=== PATIENT | female | born 1970 | race Caucasian/White ===

== ENCOUNTER 2020-06-06 15:26 | Outpatient (CLI) | payer OTHER, SELFPAY ==
--- NOTE | ~2020-06-06 | MM_ITS ---
EXAMINATION: MM screening jl BI w nathalie HISTORY: Screening TECHNIQUE: Craniocaudal and mediolateral oblique 3-D tomosynthesis images were obtained and synthetic 2-D images were generated. CAD analysis was submitted and interpreted. COMPARISON: Comparison to multiple prior studies sequentially, with oldest reviewed study dated 01/15. BREAST PARENCHYMAL COMPOSITION: There are scattered areas of fibroglandular density. FINDINGS: There is no evidence of suspicious mass, calcification, or architectural distortion to sugg est malignancy in either breast. There has been no suspicious interval change. IMPRESSION: 1. No mammographic evidence of malignancy. 2. Recommend routine screening mammography in one year. BI-RADS Category 1: Negative Reviewed, dictated and finalized at location A.
== END 2020-06-06 15:27 | disposition home or self-care (01) ==
LOC: ANHIMG 15:28
PROVIDERS: PCP Family Medicine; Visit Provider Nurse Practitioner
DX: Z12.31 Encounter for screening mammogram for malignant neoplasm of breast (principal)
CPT/HCPCS: 77063; 77067

== ENCOUNTER → 2020-08-02 15:57 | Outpatient (CLI) | payer OTHER, SELFPAY ==
--- NOTE | ~2020-08-02 | US_ITS ---
EXAMINATION: US transvaginal EXAM DATE: 08/02/2020 16:27 INDICATION: Abnormal uterine bleeding. TECHNIQUE: Pelvic transvaginal sonogram was performed. There are multiple grayscale and Doppler imag es available for interpretation. There is no prior study for comparison. FINDINGS: Uterus measures 8.0 x 3.8 x 4.5 cm, with a complex cystic region measuring 1.1 x 1.6 x 1.0 cm just posterior to the endometrium, region of the myometrial/endometrial junction. This is of unce rtain clinical significance. Endometrial stripe measures 11 mm, within normal limits. There is no fr ee pelvic fluid. Right adnexa: The ovary measures 2.9 x 2.1 x 1.8 cm and is morphologically normal. Ovarian vascular f low confirmed. Left adnexa: The ovary measures 3.6 x 2.5 x 3.6 cm and is morphologically normal. Ovarian vascular fl ow confirmed. IMPRESSION: Small complex cystic region in myometrial/endometrial junction posteriorly, uncertain cli nical significance. Consider 6 week follow-up pelvic sonogram. Normal ovaries. Reviewed, dictated and finalized at location B. IMPRESSION: Small complex cystic region in myometrial/endometrial junction post eriorly, uncertain clinical significance. Consider 6 week follow-up pelvic so nogram. Normal ovaries.
== END ==
PROVIDERS: PCP Family Medicine; Visit Provider Nurse Practitioner
DX: N93.8 Other specified abnormal uterine and vaginal bleeding (principal)
CPT/HCPCS: 76830

== ENCOUNTER → 2020-09-19 09:15 | Outpatient (CLI) | payer OTHER, SELFPAY ==
--- NOTE | ~2020-09-19 | MR_ITS ---
EXAMINATION: MR pituitary wo/w con DATE: 09/19/2020 10:14 INDICATION: Hyperprolactinemia. TECHNIQUE: Magnetic resonance imaging (MRI) of the brain and brainstem was performed without and with 20 mL MultiHance intravenous contrast. Whole-brain sequences included sagittal T1-weighted FSE, axia l diffusion-weighted FS EPI, axial T2*-weighted GRE, axial T2-weighted FLAIR Propeller, and axial T2- weighted Propeller. Small tozgx-xh-ftcl sequences included sagittal and coronal T1-weighted FSE cente red at the pituitary. Postcontrast sequences included small yguyy-ra-wvlm coronal T1-weighted FSE in a time course and sagittal T1-weighted FSE and whole-brain axial T1-weighted FSE. Apparent diffusion coefficient (ADC) maps were created. COMPARISON: Head CT 06/12/2019 FINDINGS: There are small areas of nonspecific increased T2-weighted signal intensity in the cerebral white matter, which is within normal limits for the patient's age. The pituitary is normal in size w ith height of 4 mm and concave superior margin. The ventricles are normal in size. The orbits are nor mal. The mastoid air cells are normal. The paranasal sinuses are clear. IMPRESSION: 1. Normal pituitary. Normal brain. Reviewed, dictated and finalized at location A. TAL LAPPER
[2020-09-19 09:46] LABS: Estimated Glomerular Filt Rate > 60
== END ==
PROVIDERS: PCP Family Medicine; Visit Provider Nurse Practitioner
DX: E22.1 Hyperprolactinemia (principal)
CPT/HCPCS: 70553; A9577

== ENCOUNTER → 2020-12-02 03:03 | Outpatient (CLI) | payer OTHER, SELFPAY ==
[2020-12-02 18:11] LABS: SARS-CoV-2 RNA PCR Negative
== END ==
PROVIDERS: PCP Family Medicine; Visit Provider Obstetrics & Gynecology Gynecology
DX: Z01.812 Encounter for preprocedural laboratory examination (principal); Z20.822 Contact with and (suspected) exposure to COVID-19
CPT/HCPCS: C9803; U0003; U0005

== ENCOUNTER 2020-12-05 02:02 | Day surgery (SDC) | payer OTHER, SELFPAY ==
[2020-11-29 15:14] VITALS: BMI 39.1
--- NOTE | 2020-12-05 07:33 | P.HP_ITS ---
History of Present Illness History of Present Illness Consent: Risks, benefits, and alternatives have been discussed and questions answered. Patient agrees to proceed with procedure. Chief complaint: Menorrhagia Narrative: Frances Real is a 50 year old female with prolonged bleeding episodes. Hysteroscopy with EMB benign. Options reviewed and patient chose to proceed with Meggan ablation. Discussed with patient success and outcomes post ablation. Reviewed risks of infection, bleeding, and perforation. Reviewed device failure. Due to stenosis of cervix, performing in OR and she has taken cytotec preoperatively. Patient agrees to proceed. [facility] Surgical History Surgical History (Updated 12/05/20 @ 07:37 by Constance Huston MD) S/P S/P laparoscopic cholecystectomy S/P tonsillectomy S/P tubal ligation Family History Family History (Updated 05/25/16 @ 23:19 by DOCTOR UNKNOWN) Father Hypertension Family history of malignant neoplasm of urinary bladder Grandparent Hypertension Cerebrovascular accident Family history of kidney disease Malignant neoplasm of prostate Diabetes mellitus Mother Hypertension Family history of osteoarthritis Family history of malignant neoplasm of breast in first degree relative Social History Social History Smoking status: Never smoker Second hand tobacco smoke exposure: No Alcohol intake: never Substance use: never Substance use type: does not use Living arrangements: with family Spiritual care concerns: No Meds Home Medications and Allergies Home Medications Medication Instructions Recorded Confirmed Type ergocalciferol (vitamin D2) 50,000 unit PO WEEKLY 11/29/20 11/29/20 History Allergies Allergy/AdvReac Type Severity Reaction Status Date / Time No Known Allergies Allergy Unknown Verified 01/22/10 19:37 Exam Const: General: cooperative, healthy appearing and comfortable : External Female Exam: normal external appearance Speculum Exam - Vagina: normal appearance of the vagina Speculum Exam - Cervix: normal debbie earance of the cervix and Other cervical findings present (very stenotic) Bimanual exam- vagina & uterus: normal bimanual exam Bimanual Exam- Adnexa, other: normal adnexae Assessment and Plan Assessment and plan (1) Menorrhagia: Code(s): N92.0 - Excessive and frequent menstruation with regular cycle Status: Acute Assessment and Plan: Plan to proceed with Meggan endometrial ablation
--- NOTE | 2020-12-05 07:33 | WPDHPUPDATE1 ---
History and Physical Update Update Date/Time: 12/05/20 07:33 History and Physical has been reviewed, including an updated exam of the patient. There are NO changes in the patient's condition. Risks, benefits, and alternatives have been discussed and questions answered. Patient agrees to proceed with procedure.
[2020-12-05 07:37] VITALS: BP 133/93; PULSE 84; RESP 16; TEMP 36; O2SAT 100
[2020-12-05] MEDS: LACTATED RINGERS 1,000 ML 30 ML IV CONT (08:20)
--- NOTE | 2020-12-05 08:22 | WPDANESEPPF ---
Anes - Initial Pre Proc Eval Procedure: Operation Date: 12/05/20 09:30 Proposed Procedures p Hysteroscopy With Meggan Ablation - Constance Huston MD Date/Time: 12/05/20 08:22 Surgeon: Constance Huston MD Pre Op Diagnosis: Menorrhagia Patient Data Age: 50 Gender: F Height: 5 ft 4 in Weight: 103.42 kg Allergies Allergy/AdvReac Type Severity Reaction Status Date / Time No Known Allergies Allergy Unknown Verified 01/22/10 19:37 Home Medications Medication Instructions Recorded Confirmed Type ergocalciferol (vitamin D2) 50,000 unit PO WEEKLY 11/29/20 11/29/20 History Laboratory Tests 12/05/20 07:58 Beta HCG, Quant Pending Patient hx anesthesia problems: none Family hx anesthesia problems: none PMFSH Surgical History Surgical History S/P S/P laparoscopic cholecystectomy S/P tonsillectomy S/P tubal ligation Family History Family History Father Hypertension Family history of malignant neoplasm of urinary bladder Grandparent Hypertension Cerebrovascular accident Family history of kidney disease Malignant neoplasm of prostate Diabetes mellitus Mother Hypertension Family history of osteoarthritis Family history of malignant neoplasm of breast in first degree relative Social History Social History Smoking status: Never smoker Second hand tobacco smoke exposure: No Alcohol intake: never Substance use: never Substance use type: does not use Living arrangements: with family Spiritual care concerns: No Anes - Eval Final PreProcedure Day of Procedure 12/05/20 08:22 Patient weight: obese Heart: regular rate and rhythm Lungs: clear to auscultation Airway: Mallampati scale class II Neurological: alert and oriented Last oral intake: >/= 8 hours ASA classification: III Emergent: no Anesthetic plan: proceed Anesthesia type and monitoring: general GIVS and standard monitoring Informed Consent: The patient's anesthetic plan and its attendant risks and benefits were discussed with the patient/family/POA. Questions were solicited and answers provided to the satisfaction of the patient/family/POA.
[2020-12-05] MEDS: ACETAMINOPHEN 500 MG TABLET 1000 MG PO (08:47)
[2020-12-05 08:49] LABS: Beta HCG Quantitative < 2.39 mIU/ML
[2020-12-05] MEDS: LIDOCAINE HCL 1% LOCAL INJ 20 ML VIAL 10 ML INFILTRATE (09:08)
--- NOTE | 2020-12-05 09:33 | PM.PROC ---
Procedure Note - Detailed Date of procedure: 12/05/20 Pre-op diagnosis: Menorrhagia cervical stenosis Post-op diagnosis: same Procedure performed: Meggan endometrial ablation Description of procedure: The patient was taken to the operating room and placed under anesthesia in the dorsal lithotomy position. The she was prepped and draped in the sterile fashion. [employer] speculum was placed in the vagina and the cervix grasped on the anterior lip of the tenaculum. The cervix was injected with 1% lidocaine in each quadrant. The sound was attempted to be placed and was not successful. The small dilator was able to enter the cavity. The cervix was dilated with the 3/4 dilator without difficulty. The 5 and 6 dilator were very tight and the tenaculum kept pulling from the anterior cervix. The tenaculum was placed on the posterior lip of the cervix and again the tenaculum site pulled through. A 2nd tenaculum was requested and 1 tenaculum was placed at 3 and 1 at 9. The cervix was then with quite amount of difficulty able to be dilated to the 8 Hegar. The hysteroscope was then placed with no abnormalities noted. The remainder of the device is opened and placed with the setting initially of 4.5. The device was felt to be at the fundus. The balloon was noted to be right at the external cervix so it was removed and set at 4. When opening the device the indicator remained in the red despite maneuvering the device around. The balloon was not visible. Therefore was inflated. The cavity indicator showed a good seal therefore the ablation was performed. Cavity assessment passed on the 1st attempt and the treatment cycle lasted the full 2 minutes. The device is removed and the hysteroscope was placed with no abnormalities noted and some ablation effect noted. The instruments are removed from the cervix and Monsel's is required for hemostasis of the previously placed tenaculum sites anteriorly and posteriorly. Good hemostasis was then noted and the speculum is removed. Sponge, instrument, and needle counts are correct per the OR staff. Anesthesia: MAC and local Surgeon: Constance Huston MD Estimated blood loss (mL): 5 Drains: No Packing: No Pathology: none sent Complications: No immediate complications Condition: stable Disposition: PACU Findings: cervix with severe stenosis at internal os; endometrium appears grossly normal; Uterus 8
[2020-12-05 09:37] VITALS: BP 142/93; PULSE 81; RESP 16; O2SAT 99
[2020-12-05 10:00] VITALS: BP 151/96; PULSE 82; RESP 16; O2SAT 100
[2020-12-05] MEDS: oxyCODONE HCL (*CRX) 5 MG TAB IR PO (10:05)
[2020-12-05 10:20] VITALS: BP 143/92; PULSE 80; RESP 16; O2SAT 100
== END 2020-12-05 10:30 | disposition home or self-care (01) ==
PROVIDERS: Anesthesiology; PCP Family Medicine; Visit Provider Obstetrics & Gynecology Gynecology
PROC: 0U5B8ZZ Destruction of Endometrium, Via Natural or Artificial Opening Endoscopic (ICD-10-PCS; CPT 58563; principal; 2020-12-05 09:30)
DX: N92.0 Excessive and frequent menstruation with regular cycle (principal); N88.2 Stricture and stenosis of cervix uteri; E66.9 Obesity, unspecified; Z68.38 Body mass index [BMI] 38.0-38.9, adult
CPT/HCPCS: 58563; 36415; 84702; A9270; C9803; J2250; J2704; J3010; J7030; J7120; U0003; U0005

== ENCOUNTER 2021-02-07 15:37 | Outpatient (CLI) | payer OTHER, SELFPAY | END 2021-02-07 15:38 | disposition home or self-care (01) | LOC: ANHCOVIDVC 15:37 | PROVIDERS: PCP Family Medicine | DX: Z23 Encounter for immunization (principal) | CPT/HCPCS: 0001A; 91300 ==

== ENCOUNTER 2021-02-28 12:58 | Outpatient (CLI) | payer OTHER, SELFPAY | END 2021-02-28 12:59 | disposition home or self-care (01) | LOC: ANHCOVIDVC 12:59 | PROVIDERS: PCP Family Medicine | DX: Z23 Encounter for immunization (principal) | CPT/HCPCS: 0002A; 91300 ==

== ENCOUNTER 2021-06-08 07:24 | Outpatient (CLI) | payer OTHER, SELFPAY ==
--- NOTE | ~2021-06-08 | MM_ITS ---
EXAMINATION: MM screening jl BI w nathalie HISTORY: Screening TECHNIQUE: Craniocaudal and mediolateral oblique 3-D tomosynthesis images were obtained and synthetic 2-D images were generated. CAD analysis was submitted and interpreted. COMPARISON: Comparison to multiple prior studies sequentially, with oldest reviewed study dated 03/27. BREAST PARENCHYMAL COMPOSITION: There are scattered areas of fibroglandular density. FINDINGS: There is no evidence of suspicious mass, calcification, or architectural distortion to sugg est malignancy in either breast. There has been no suspicious interval change. IMPRESSION: 1. No mammographic evidence of malignancy. 2. Recommend routine screening mammography in one year. BI-RADS Category 1: Negative Reviewed, dictated and finalized at location A.
== END 2021-06-08 07:25 | disposition home or self-care (01) ==
PROVIDERS: PCP Family Medicine; Visit Provider Nurse Practitioner
DX: Z12.31 Encounter for screening mammogram for malignant neoplasm of breast (principal)
CPT/HCPCS: 77063; 77067

== ENCOUNTER 2021-06-29 01:41 | Day surgery (SDC) | payer OTHER, SELFPAY ==
[2021-06-16 14:42] VITALS: BMI 39.3
[2021-06-29 06:20] VITALS: BP 124/95; PULSE 78; RESP 16; TEMP 36.8; O2SAT 99; BMI 40.1
[2021-06-29] MEDS: LACTATED RINGERS 1,000 ML 150 ML IV CONT (06:24)
--- NOTE | 2021-06-29 07:20 | WPDANESEPPF ---
Anes - Initial Pre Proc Eval Procedure: Operation Date: 06/29/21 07:30 Proposed Procedures p Screening Colonoscopy - Addy Redmond MD Date/Time: 06/29/21 07:20 Surgeon: Addy Redmond MD Pre Op Diagnosis: neoplasm screening Patient Data Age: 50 Gender: F Height: 1.63 m Weight: 106 kg Last Vital Signs Temp 98.2 F 06/29/21 06:20 Pulse 78 06/29/21 06:20 Resp 16 06/29/21 06:20 BP 124/95 H 06/29/21 06:20 Pulse Ox 99 06/29/21 06:20 Allergies Allergy/AdvReac Type Severity Reaction Status Date / Time No Known Allergies Allergy Unknown Verified 06/29/21 06:18 Home Medications Medication Instructions Recorded Confirmed Type ergocalciferol (vitamin D2) 50,000 unit PO WEEKLY 11/29/20 06/16/21 History Patient hx anesthesia problems: none Family hx anesthesia problems: none PMFSH Past Medical History Medical History (Updated 06/29/21 @ 07:20 by Arnulfo Chen MD) JOSE (obstructive sleep apnea) Surgical History Surgical History S/P S/P laparoscopic cholecystectomy S/P tonsillectomy S/P tubal ligation Family History Family History Father Hypertension Family history of malignant neoplasm of urinary bladder Grandparent Hypertension Cerebrovascular accident Family history of kidney disease Malignant neoplasm of prostate Diabetes mellitus Mother Hypertension Family history of osteoarthritis Family history of malignant neoplasm of breast in first degree relative Social History Social History Smoking status: Former smoker Second hand tobacco smoke exposure: No Alcohol intake: never Substance use: never Substance use type: does not use Living arrangements: with family Spiritual care concerns: No Anes - Eval Final PreProcedure Day of Procedure 06/29/21 07:20 Patient weight: morbidly obese Heart: regular rate and rhythm Lungs: clear to auscultation Airway: Mallampati scale class II Neurological: alert and oriented Last oral intake: >/= 8 hours ASA classification: III Emergent: no Anesthetic plan: proceed Anesthesia type and monitoring: general GIVS and standard monitoring Informed Consent: The patient's anesthetic plan and its attendant risks and benefits were discussed with the patient/family/POA. Questions were solicited and answers provided to the satisfaction of the patient/family/POA.
--- NOTE | 2021-06-29 07:59 | WPDGICN ---
Assessment and Plan Assessment and plan (1) Encounter for screening colonoscopy: Code(s): Z12.11 - Encounter for screening for malignant neoplasm of colon Status: Acute Assessment and Plan: Patient presents for screening colonoscopy. She appears to be at average risk for colon polyps. Further recommendations will be given after endoscopy. GI Consult Note Consult date/time: 06/29/21 07:59 HPI: Frances Real is a 50 year old female Presents for screening colonoscopy. Patient has current weight appetite bowel movements normal. She denies abdominal pain. She has had no bleeding. Family history is noncontributory. Review of Systems Review of Systems: All systems reviewed & are unremarkable except as noted in HPI and below PMFSH Past Medical History Medical History (Updated 06/29/21 @ 08:00 by Addy Redmond MD) JOSE (obstructive sleep apnea) Surgical History Surgical History S/P S/P laparoscopic cholecystectomy S/P tonsillectomy S/P tubal ligation Family History Family History Father Hypertension Family history of malignant neoplasm of urinary bladder Grandparent Hypertension Cerebrovascular accident Family history of kidney disease Malignant neoplasm of prostate Diabetes mellitus Mother Hypertension Family history of osteoarthritis Family history of malignant neoplasm of breast in first degree relative Social History Social History Smoking status: Former smoker Second hand tobacco smoke exposure: No Alcohol intake: never Substance use: never Substance use type: does not use Living arrangements: with family Spiritual care concerns: No Meds Home Medications and Allergies Home Medications Medication Instructions Recorded Confirmed Type ergocalciferol (vitamin D2) 50,000 unit PO WEEKLY 11/29/20 06/16/21 History Allergies Allergy/AdvReac Type Severity Reaction Status Date / Time No Known Allergies Allergy Unknown Verified 06/29/21 06:18 Vital Signs Vital Signs - 24 hr 06/29/21 06:20 Temperature 98.2 F Pulse Rate 78 Respiratory Rate 16 Blood Pressure 124/95 H Pulse Oximetry 99 Exam Narrative: Physical exam reveals patient be alert. Vital signs are stable. HEENT exam is unremarkable. Patient is anicteric. Lungs are clear to auscultation and percussion. Heart is without murmur or extra sounds. Abdominal exam bowel sounds are present soft nontender with no organomegaly. Digital external rectal exam is normal.
[2021-06-29 08:00] VITALS: BP 125/97; PULSE 77; RESP 20; O2SAT 100
[2021-06-29 08:10] VITALS: BP 121/85; PULSE 67; RESP 16; O2SAT 100
[2021-06-29 08:20] VITALS: BP 127/83; PULSE 68; RESP 19; O2SAT 100
== END 2021-06-29 08:26 | disposition home or self-care (01) ==
PROVIDERS: PCP Family Medicine; Visit Provider Internal Medicine Gastroenterology
PROC: 0DJD8ZZ Inspection of Lower Intestinal Tract, Via Natural or Artificial Opening Endoscopic (ICD-10-PCS; CPT 45378; principal; 2021-06-29 07:30)
DX: Z12.11 Encounter for screening for malignant neoplasm of colon (principal); K64.8 Other hemorrhoids; G47.33 Obstructive sleep apnea (adult) (pediatric); Z90.49 Acquired absence of other specified parts of digestive tract; Z87.891 Personal history of nicotine dependence
CPT/HCPCS: G0121; J2704; J7120

== ENCOUNTER → 2021-11-07 00:58 | Outpatient (CLI) | payer OTHER, SELFPAY ==
[2021-11-07 21:02] LABS: SARS-CoV-2 RNA PCR Positive
== END ==
PROVIDERS: PCP Family Medicine; Visit Provider Nurse Practitioner Family
DX: U07.1 COVID-19 (principal)
CPT/HCPCS: C9803; U0003; U0005

== ENCOUNTER 2022-08-13 07:33 | Outpatient (CLI) | payer OTHER, SELFPAY ==
--- NOTE | ~2022-08-13 | MM_ITS ---
EXAMINATION: MM screening jl BI w nathalie HISTORY: Screening TECHNIQUE: Craniocaudal and mediolateral oblique 3-D tomosynthesis images were obtained and synthetic 2-D images were generated. CAD analysis was submitted and interpreted. COMPARISON: Comparison to multiple prior studies sequentially, with oldest reviewed study dated 03/27. BREAST PARENCHYMAL COMPOSITION: The breasts are heterogeneously dense, which may obscure small masses . FINDINGS: There is no evidence of suspicious mass, calcification, or architectural distortion to sugg est malignancy in either breast. There has been no suspicious interval change. IMPRESSION: 1. No mammographic evidence of malignancy. 2. Recommend routine screening mammography in one year. BI-RADS Category 1: Negative Reviewed, dictated and finalized at location A.
== END 2022-08-13 07:34 | disposition home or self-care (01) ==
LOC: ANHIMG 07:35
PROVIDERS: PCP Family Medicine; Visit Provider Nurse Practitioner
DX: Z12.31 Encounter for screening mammogram for malignant neoplasm of breast (principal)
CPT/HCPCS: 77063; 77067

== ENCOUNTER 2023-11-14 07:35 | Outpatient (CLI) | payer OTHER, SELFPAY ==
--- NOTE | ~2023-11-14 | MM_ITS ---
EXAMINATION: MM screening jl BI w nathalie HISTORY: Screening TECHNIQUE: Craniocaudal and mediolateral oblique 3-D tomosynthesis images were obtained and synthetic 2-D images were generated. CAD analysis was submitted and interpreted. COMPARISON: Comparison to multiple prior studies sequentially, with oldest reviewed study dated 02/2017. BREAST PARENCHYMAL COMPOSITION: The breasts are heterogeneously dense, which may obscure small masses . FINDINGS: There is no evidence of suspicious mass, calcification, or architectural distortion to sugg est malignancy in either breast. There has been no suspicious interval change. IMPRESSION: 1. No mammographic evidence of malignancy. 2. Recommend routine screening mammography in one year. BI-RADS Category 1: Negative Reviewed, dictated and finalized at location A. [employer]
== END 2023-11-14 07:36 | disposition home or self-care (01) ==
PROVIDERS: PCP Family Medicine; Visit Provider Nurse Practitioner
DX: Z12.31 Encounter for screening mammogram for malignant neoplasm of breast (principal)
CPT/HCPCS: 77063; 77067

== ENCOUNTER 2024-10-16 17:47 | Emergency (ER) | payer OTHER, SELFPAY ==
[2024-10-16 17:49] VITALS: BP 137/112; PULSE 101; RESP 18; TEMP 36.1; O2SAT 99
--- NOTE | 2024-10-16 19:45 | ED.GENADULT ---
HPI - General Adult General Chief complaint: Wound/Laceration Stated complaint: finger Time Seen by Provider: 10/16/24 18:55 History of Present Illness HPI narrative: 54-year-old female presenting with a finger laceration. She was using a sharp pizza cutter and cut a slice of her index finger. Did not hit bone. It is a relatively shallow cut. Her does not know when her last tetanus was. No other injuries. Related Data Home Medications ?Medication ?Instructions ?Recorded ?Confirmed ?Last Taken ?Type ergocalciferol (vitamin D2) 1,250 50,000 unit PO WEEKLY 11/29/20 06/16/21 11/27/20 History mcg (50,000 unit) capsule Allergies Allergy/AdvReac Type Severity Reaction Status Date / Time No Known Allergies Allergy Unknown Verified 10/16/24 17:48 [facility] Past Medical History Medical History (Updated 10/16/24 @ 19:50 by Lev Bullock MD) JOSE (obstructive sleep apnea) Surgical History Surgical History S/P tonsillectomy S/P tubal ligation S/P laparoscopic cholecystectomy S/P Family History Family History (Updated 01/15/22 @ 08:11 by Raysa Mohr Kevyn) Father Hypertension Family history of malignant neoplasm of urinary bladder Grandparent Hypertension Cerebrovascular accident Family history of kidney disease Malignant neoplasm of prostate Diabetes mellitus Mother Hypertension Family history of osteoarthritis Family history of malignant neoplasm of breast in first degree relative Sibling No problems noted. Social History Social History Smoking status: Former smoker Second hand tobacco smoke exposure: No Alcohol intake: never Substance use: never Substance use type: does not use Living arrangements: with family Spiritual care concerns: No Exam Narrative: APPEARANCE: No apparent distress. Head: atraumatic. EYES: EOMI, NOSE: Atraumatic NECK: Trachea midline RESPIRATORY: No increased rate of breathing CARDIOVASCULAR: RRR, ABDOMINAL: Non-distended MUSCULOSKELETAl: No obvious deformities NEURO: Alert. Moving 4/4 extremities SKIN:: A thin shallow slice fingers been removed, no exposed bone PSYCHIATRIC: Normal affect Course Vital Signs Vital signs: Vital Signs Temperature 97.0 F L 10/16/24 17:49 Pulse Rate 101 H 10/16/24 17:49 Respiratory Rate 18 10/16/24 17:49 Blood Pressure 137/112 H 10/16/24 17:49 Pulse Oximetry 99 10/16/24 17:49 Oxygen Delivery Room Air 10/16/24 17:49 Temperature 97.0 F L 10/16/24 17:49 Pulse Rate 101 H 10/16/24 17:49 Respiratory Rate 18 10/16/24 17:49 Blood Pressure 137/112 H 10/16/24 17:49 Pulse Oximetry 99 10/16/24 17:49 Oxygen Delivery Room Air 10/16/24 17:49 Medical Decision Making MDM Narrative Medical decision making narrative: -Course: 54-year-old female presenting with a finger injury. She took a thin superficial slice off of her index finger or repair to be made. No involvement of the bone. Wound was cleaned. she was given pain control. Tdap was updated. Patient educated on expected course of healing and when to return to the ED. Discharged. Vital Signs Vital Signs: Vital Signs Temperature 97.0 F L 10/16/24 17:49 Pulse Rate 101 H 10/16/24 17:49 Respiratory Rate 18 10/16/24 17:49 Blood Pressure 137/112 H 10/16/24 17:49 Pulse Oximetry 99 10/16/24 17:49 Oxygen Delivery Room Air 10/16/24 17:49 Temperature 97.0 F L 10/16/24 17:49 Pulse Rate 101 H 10/16/24 17:49 Respiratory Rate 18 10/16/24 17:49 Blood Pressure 137/112 H 10/16/24 17:49 Pulse Oximetry 99 10/16/24 17:49 Oxygen Delivery Room Air 10/16/24 17:49 Discharge Plan Discharge Clinical Impression: Finger injury Patient Disposition: Home, Self-Care Condition: Stable Instructions: Antibiotic Form, Skin Avulsion (ED) Additional Instructions: Please keep the wound dressed with clean bandages. You can use bacitracin for the 1st several days until it scabs over. Please remove the bandage and let the wound to dry for 2 hours per day. Please follow-up with your primary care physician. If you develop severe pain or signs of infection and like to return to the ED immediately. Use OTC motrin/tylenol for pain. Patient Language: [place] Prescriptions: No Action ergocalciferol (vitamin D2) 1,250 mcg (50,000 unit) capsule 50,000 unit PO WEEKLY Follow-up/Referrals: Azeem Gandhi MD [Primary Care Provider] - 1 Week (wound check )
[2024-10-16] MEDS: NEOMYCIN/POLYMYXIN/BACITRACIN OINTMENT PACKET 1 PACKET TOPICAL (19:55)
[2024-10-16] MEDS: IBUPROFEN 400 MG TABLET 800 MG PO (19:57)
[2024-10-16] MEDS: TETANUS,DIPHTHERIA,AC PERTUSSIS ADULT (0.5 ML) BOOSTRIX IM (19:58)
[2024-10-16] MEDS: ACETAMINOPHEN 500 MG TABLET 1000 MG PO (20:03)
[2024-10-16 20:11] VITALS: BP 133/86; PULSE 83; RESP 18; O2SAT 98
== END 2024-10-16 20:10 | disposition home or self-care (01) ==
PROVIDERS: Emergency Provider Emergency Medicine; PCP Family Medicine
DX: S61.211A Laceration without foreign body of left index finger without damage to nail, initial encounter (principal); Z23 Encounter for immunization; G47.33 Obstructive sleep apnea (adult) (pediatric); Z87.891 Personal history of nicotine dependence; Z90.49 Acquired absence of other specified parts of digestive tract; W27.4XXA Contact with kitchen utensil, initial encounter; Y93.G1 Activity, food preparation and clean up
CPT/HCPCS: 90471; 90715; 99282; 99284; A9270

== ENCOUNTER 2025-01-26 14:27 | Outpatient (CLI) | payer OTHER, SELFPAY ==
--- NOTE | ~2025-01-26 | MM_ITS ---
EXAMINATION: MM screening jl BI w nathalie HISTORY: Screening TECHNIQUE: Craniocaudal and mediolateral oblique 3-D tomosynthesis images were obtained and synthetic 2-D images were generated. CAD analysis was submitted and interpreted. COMPARISON: Comparison to multiple prior studies sequentially, with oldest reviewed study dated 04/10. BREAST PARENCHYMAL COMPOSITION: Not dense: There are scattered areas of fibroglandular density. FINDINGS: There is no evidence of suspicious mass, calcification, or architectural distortion to sugg est malignancy in either breast. There has been no suspicious interval change. IMPRESSION: 1. No mammographic evidence of malignancy. 2. Recommend routine screening mammography in one year. BI-RADS Category 1: Negative Reviewed, dictated and finalized at location A.
--- OUTSIDE RECORDS SUMMARY | 2025-01-26 15:55 | XMS_ITS | Encounter Summary ---
Author Organization [facility] Address [address] [place] [address] Care Team Providers Care Wig Maker Name Role Phone Azeem Gandhi MD Primary Care Provider [phone] Encounter Details Date Type Department Care Team (Late st Contact Info) Description 01/08/2025 Results Follow-Up [facility] [employer] [place] [address] [place] [address] Diaan Cain MD [address] [place] [address] TSH, LIPID PANEL, COMPREHENSIVE METABOLIC PANEL, CBC WITH DIFFERENTIAL Social History Tobacco Use Types Packs/Day Years Used Date Smoking Tobacco: Never Smokeless Tobacco: Never Alcohol Use Standard Drinks/Week Comments No 0 (1 standard drink = 0.6 oz pur e alcohol) Comments No Sex and Gender Information Value Date Recorded Sex Assigned at Female 01/06/2025 10:51 AM CDT Legal Sex Female 2:54 PM CDT Gender Identity Female 01/06/2025 10:51 AM CDT Sexual Orientation Straight 01/06/2025 10 :51 AM CDT documented as of this encounter Miscellaneous Notes * Result Encounter Note - Marcia Olivo - 01/08/2025 1:12 PM CDT Called and informed pt who voiced understanding. documented in this encounter Plan of Treatment Not on file documented as of this encounter Visit Diagnoses Not on filedocumented in this encounter Care Teams Wig Maker Relationship Specialty Start Date End Date Azeem Gandhi MD [address] [place] [address] PCP - General Family Practice 01/07/24 documented as of this encounter
--- OUTSIDE RECORDS SUMMARY | 2025-01-26 15:55 | XMS_ITS | Referral Summary ---
Author Organization [address] Address [address] [place] [phone] Care Team Providers Care Endband Sizer Name Role Phone Azeem Gandhi MD Primary Care Provider [phone] Allergies No known active allergies Medications cyclobenzaprine (FLEXERIL) 5 mg tablet Take 1 tablet (5 mg total) by mouth 3 (three) times a day as needed 1 Active ergocalciferol (VITAMIN D) 50,000 unit capsule TAKE 1 CAPSULE BY MOUTH ONCE A WEEK WITH A MEAL 4 Active fluticasone propionate (FLONASE) 50 mcg/actuation nasal spray Administer 2 sprays into affected nostril(s) daily 8 Active terbinafine (LamiSIL) 250 mg tablet Take 1 tablet (250 mg total) by mouth daily 4 Active Active Problems No known active problems Social History Tobacco Use Types Packs/Day Years Used Date Smoking Tobacco: Never Assessed Comments Unknown Sex and Gender Information Value Date Recorded Sex Assigned at Not on file 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 Gender Identity Not on file Sexual Orientation Not on file Last Filed Vital Signs Vital Sign Reading Time Taken Comments Blood Pressure 124/78 04/28/2024 4:28 PM CDT Pulse 67 04/28/2024 4:28 PM CDT Temperature 36.3 C (97.3 F) 04/28/2024 4:28 PM CDT Respiratory Rate 20 04/28/2024 4:28 PM CDT Oxygen Saturation 99% 04/28/2024 4:28 PM CDT Inhaled Oxygen Concentration - - Weight 98 kg (216 lb) 04/28/2024 4:28 PM CDT Height 162.6 cm (5' 4 ) 04/28/2024 4:28 PM CDT Body Mass Index 37.08 04/28/2024 4:28 PM CDT Plan of Treatment Not on file Insurance CIGANA ALLEGIANCE CIGANA ALLEGIANCE Care Teams Endband Sizer Relationship Specialty Start Date End Date Azeem Gandhi MD PCP - General Family Medicine 11/19/22
--- OUTSIDE RECORDS SUMMARY | 2025-01-26 15:55 | XMS_ITS | Clinical Summary ---
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 Gender Identity Not on file Sexual Orientation Not on file Obstetrics History Last Filed Vital Signs Vital Sign Reading [...] 04/28/2024 4:28 PM CDT Plan of Treatment Health Maintenance Due Date Last Done Comments Breast Cancer Screening-Mammogram 1972 Cervical Cancer Screening 1972 Colon Cancer Screening-Colonoscopy 1972 Depression Screening 1972 Hepatitis C Screening 1972 Hepatitis B Screening 1990 Regular Well Visit/Exam 18-64 1990 DTaP/Tdap/Td Vaccine (1 - Tdap) 05/10/2009 05/09/2009 Zoster Vaccine (2 of 2) 12/06/2022 10/11/2022 Covid-19 Vaccine ( season) 2024 07/04/2022, 09/01/2021, 02/28/2021, Additional history exists Influenza Vaccine (#1) 2024 , 07/24/2021, 07/13/2020, Additional history exists Pneumococcal vaccine <65 Aged Out No longer eligible based on patient's age to complete this topic Insurance UdorseANA KolorificGIANCE Udorse KolorificGIANCE Care Teams Engraver Steel Plate Relationship Specialty Start Date End Date Azeem Gandhi MD PCP - General Family Medicine 11/19/22
--- OUTSIDE RECORDS SUMMARY | 2025-01-26 15:55 | XMS_ITS | Clinical Summary ---
Author Organization [facility] Address [address] [place] [phone] Care Team Providers Care Bead Stringer Name Role Phone Unavailable Primary Care Provider Unavailabl e Immunizations Immunization Administration Dates Next Due Covid-19, Mrna, Lnp-s, Pf, 30 Mcg/0.3 Ml Dose (Renée maguire) 09/01/2021 Social History Tobacco Use Types Packs/Day Years Used Date Smoking Tobacco: Never Assessed Comments Unknown Sex and Gender Information Value Date Recorded Sex Assigned at Not on file Legal Sex Female 9:33 AM CDT Gender Identity Not on file Sexual Orientation Not on file Plan of Treatment Health Maintenance Due Date Last Done Comments Hepatitis C Virus (HCV) Screening 1972 TdaP Immunization 1972 Hepatitis B Immunization (1 of 3 - 19+ 3-dose series) 1991 Colonoscopy 2017 Colorectal Cancer Screening 2017 Cologuard 2022 Immunochemical Fecal Occult Blood 2022 Pneumococcal Immunization (50+ years) (1 of 1 - PCV) 2022 Zoster Immunization (1 of 2) 2022 Influenza Immunization (#1) 2024 09/2 04/2021, 07/13/2020, 08/07/2019, Additional history exists SARS-COV-2 Immunization ( season) 2024 09/01/2021, 02/28/2021, 02/07/2021 Respiratory Syncytial Virus (RSV) Immunization (Adult) (1 - 1-dose 75+ series) 2047 DTaP/Tdap/Td Immunization Discontinued 05/09/2009 Meningococcal Immunization (ACWY) Aged Out No longer eligible based on patient's age to complete this topic Rotavirus Immunization Aged Out No lo nger eligible based on patient's age to complete this topic
--- OUTSIDE RECORDS SUMMARY | 2025-01-26 15:55 | XMS_ITS | Clinical Summary ---
Author Organization [facility] Address [address] [place] [address] [place] [address] Care Team Providers Care Vehicle Insurance Agent Name Role Phone Azeem Gandhi MD Primary Care Provider [phone] Allergies No known active allergies Medications ergocalciferol (VITAMIN D2) 50,000 unit capsule Take 1 Capsule by mouth every 7 days. 3 08/04/2018 Active naltrexone HCl/bupropion HCl (CONTRAVE ORAL) Take by mouth. Active Active Problems No known active problems Encounters Date Type Department Care Team Description 01/13/2025 External Device Data [facility] Provider, Abstract 01/08/2025 Results Follow-Up [email or web address] [place] [address] [phone] Diana Cain MD TSH, LIPID PANEL, COMPREHENSIVE METABOLIC PANEL, CBC WITH DIFFERENTIAL 01/06/2025 8:40 AM CDT Office Visit [facility] [email or web address] [place] [address] [place] [address] Screening for condition (Primary Dx) 01/02/2025 External Device Data [facility]STRACTION Provider, Abstract 01/01/2025 External Device Data [facility] Provider, Abstract 12/29/2024 External Device Data [facility] Provider, Abstract 12/15/2024 External Device Data [facility] Provider, Abstract 11/18/2024 External Device Data [facility] Provider, Abstract 11/18/2024 External Device Data [facility] Provider, Abstract 11/11/2024 External Device Data [facility] Provider, Abstract from Last 3 Months Immunizations Immunization Administration Dates Next Due INFLUENZA VACCINE QUADRIVALENT 6 MOS UP IM 08/07,07/30/2018 Family History Medical History Relation Name Comments No Known Problems Daughter Cancer Father Kaz Arzola bladder Hypertension Father Kaz Arzola Heart Disease Maternal Grandfather Stanton Felder Unknown Maternal Grandmother Breast Cancer Mother Tiana Arzola Hypertension Mother Tiana Arzola Pacemaker Paternal Grandfather Kidney Disease Paternal Grandmother Myah Arzola No Known Problems Sister Relation Name Status Comments Daughter Alive Father Kaz Arzola Alive Maternal Grandfather Stanton Felder Maternal Grandmother Mother Tiana Arzola Alive Paternal Grandfather Paternal Grandmother Myah Arzola Sister Alive Social History Tobacco Use Types Packs/Day Years Used Date Smoking Tobacco: Never Smokeless Tobacco: Never Tobacco Cessation:Counseling Given: Not Answered Alcohol Use Standard Drinks/Week Comments No 0 (1 standard drink = 0.6 oz pur e alcohol) Comments No Sex and Gender Information Value Date Recorded Sex Assigned at Female 01/06/2025 10:51 AM CDT Legal Sex Female 2:54 PM CDT Gender Identity Female 01/06/2025 10:51 AM CDT Sexual Orientation Straight 01/06/2025 10 :51 AM CDT Last Filed Vital Signs Vital Sign Reading Time Taken Comments Blood Pressure 122/80 01/06/2025 8:41 AM CDT Pulse 87 09/02/2019 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 Temperature 36.7 C (98.1 F) 09/02/2019 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 Respiratory Rate 12 09/02/2019 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 Oxygen Saturation 100% 09/02/2019 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 Inhaled Oxygen Concentration - - Weight 94.8 kg (209 lb) 01/06/2025 8:41 AM CDT Height 162.6 cm (5' 4 ) 01/06/2025 8:41 AM CDT Body Mass Index 35.87 01/06/2025 8:41 AM CDT Plan of Treatment Health Maintenance Due Date Last Done Comments DTAP/TDAP/TD VACCINES (1 - Tdap) 1991 HEPATITIS B VACCINES (1 of 3 - 19+ 3-dose series) 1991 PAP SMEAR 1993 HPV/Cotest (30-65) 2002 COLORECTAL SCREENING 2017 Colorectal Cancer Screening 2017 FIT-DNA Q 3 years 2017 FIT/FOBT Q 1 year 2017 Flex Sig/CT Colonography Q 5 years 2017 BREAST CANCER SCREENING 02/25/2019 02/26/20 18 (Previously completed) CERVICAL CANCER SCREENING 02/25/2021 PAP SMEAR 02/25/2021 02/25/2018 (Prev iously completed) Pre-Diabetes and Diabetes Screening 05/20/202205/20 ZOSTER VACCINE (1 of 2) 2022 INFLUENZA VACCINE (#1) 2024 08/07/2019, 2017 COVID-19 Vaccine ( season) 06/28/202402/2021 Procedures Procedure Name Priority Date/Time Associated Diagnosis Comments CBC WITH DIFFERENTIAL Routine 01/06/2025 8:30 AM CDT Screening for condition COMPREHENSIVE METABOLIC PANEL Routine 01/06/2025 8:30 AM CDT Screening for condition LIPID PANEL Routine 01/06/2025 8:30 AM CDT Screening for condition TSH Routine 01/06/2025 8:30 AM CDT Screening for condition GLUCOSE FASTING Routine 05/20/2019 from Last 3 Months or Most Recently Relevant to Health Maintenance Results * CBC WITH DIFFERENTIAL (01/06/2025 8:30 AM CDT) WBC 4.8 3.8 - 10.8 Thousand/u L [facility] RBC 4.76 3.80 - 5.10 Million/uL [facility] HEMOGLOBIN 14.8 11.7 - 15.5 g/dL [facility] HEMATOCRIT 44.5 35.0 - 45.0 % [facility] MCV 93.5 80.0 - 100.0 fL [facility] MCH 31.1 27.0 - 33.0 pg [facility] MCHC 33.3 32.0 - 36.0 g/dL [facility] Comment: For adults, a slight decrease in the calculated MCHC value (in the range of 30 to 32 g/dL) is most likely not clinically significant; however, it should be interpreted with caution in correlation with other red cell parameters and the patient's clinical condition. RDW 12.9 11.0 - 15.0 % [facility] PLATELETS 357 140 - 400 Thousand/u L [facility] MPV 10.0 7.5 - 12.5 fL [facility] NEUTROPHIL ABSOLUTE 2,875 1,500 - 7,800 cells/uL [facility] LYMPHOCYTE ABSOLUTE 1,330 850 - 3,900 cells/uL [facility] MONOCYTE ABSOLUTE 408 200 - 950 cells/uL [facility] EOSINOPHIL ABSOLUTE 149 15 - 500 cells/uL [facility] BASOPHILS ABSOLUTE 38 0 - 200 cells/uL [facility] NEUTROPHIL 59.9 % [facility] LYMPHOCYTES 27.7 % [facility] MONOCYTE 8.5 % [facility] EOSINOPHILS 3.1 % [facility] BASOPHILS 0.8 % [facility] Comment: Test Performed at: [facility] [address] [place] [address] Geneva Singh MD Blood 01/06/2025 8:30 AM CDT 01/07/2025 6:34 AM CDT us Diana Cain MD HEMATOLOGY ORDERABLES Final Re sult [facility] [phone] [facility] [address] [place] [address] * TSH (01/06/2025 8:30 AM CDT) TSH 1.43 mIU/L [facility] Comment: Reference Range > or = 20 Years 0.40-4.50 Ranges First trimester 0.26-2.66 Second trimester 0.55-2.73 Third trimester 0.43-2.91 Test Performed at: [facility] [address] [facility] [place] [address] Geneva Singh MD Blood 01/06/2025 8:30 AM CDT 01/07/2025 6:34 AM CDT us Diana Cain MD CHEMISTRY ORDERABLES Final Res ult [facility] [phone] [facility] [address] [place] [address] * LIPID PANEL (01/06/2025 8:30 AM CDT) CHOLESTEROL 180 <200 mg/dL [facility] HDL 69 > OR = 50 mg/dL [facility] TRIGLYCERIDE 73 <150 mg/dL [facility] LDL CALCULATED 95 mg/dL (calc) [facility] Comment: Reference range: <100 Desirable range <100 mg/dL for primary prevention; <70 mg/dL for patients with CHD or diabetic patients with > or = 2 CHD risk factors. LDL-C is now calculated using the Dario-Rangel calculation, which is a validated novel method providing better accuracy than the Friedewald equation in the estimation of LDL-C. Dario SS et al. HATTIE. 2013;310(19): 1139-2112 (http://education.Akvolution/faq/BLM681) CHOL/HDL RATIO 2.6 <5.0 (calc) [facility] NON-HDL CHOLESTEROL 111 <130 mg/dL (calc) [facility] Comment: For patients with diabetes plus 1 major ASCVD risk factor, treating to a non-HDL-C goal of <100 mg/dL (LDL-C of <70 mg/dL) is considered a therapeutic option. Test Performed at: [facility] [address] [facility] [place] [address] Geneva Singh MD Blood 01/06/2025 8:30 AM CDT 01/07/2025 6:34 AM CDT us Diana Cain MD CHEMISTRY ORDERABLES Final Res ult [facility] [phone] [facility] [address] [place] [address] * COMPREHENSIVE METABOLIC PANEL (01/06/2025 8:30 AM CDT) GLUCOSE 84 65 - 99 mg/dL [facility] Comment: Fasting reference interval BUN 11 7 - 25 mg/dL [facility] CREATININE 0.82 0.50 - 1.03 mg/dL [facility] GFR 86 > OR = 60 mL/min/1. 73m2 [facility] BUN/CREAT RATIO SEE NOTE: 6 - 22 (calc) [facility] Comment: Not Reported: BUN and Creatinine are within reference range. SODIUM 139 135 - 146 mmol/L [facility] POTASSIUM 4.2 3.5 - 5.3 mmol/L [facility] CHLORIDE 101 98 - 110 mmol/L [facility] CO2 30 20 - 32 mmol/L [facility] CALCIUM 10.0 8.6 - 10.4 mg/dL [facility] TOTAL PROTEIN 7.2 6.1 - 8.1 g/dL [facility] ALBUMIN 4.6 3.6 - 5.1 g/dL [facility] GLOBULIN 2.6 1.9 - 3.7 g/dL (calc) [facility] ALBUMIN/GLOBULIN RATIO 1.8 1.0 - 2.5 (calc) [facility] BILIRUBIN TOTAL 0.5 0.2 - 1.2 mg/dL [facility] ALKALINE PHOSPHATASE 65 37 - 153 U/L [facility] AST 11 10 - 35 U/L [facility] ALT 9 6 - 29 U/L [facility] Comment: Test Performed at: [facility] [address] [place] [address] Geneva Singh MD Blood 01/06/2025 8:30 AM CDT 01/07/2025 6:34 AM CDT us Diana Cain MD CHEMISTRY ORDERABLES Final Res ult Performing Organization Address [facility] Co de Phone Number [facility] [phone] [facility] [address] [place] [address] * GLUCOSE FASTING (05/20/2019) GLUCOSE 98 74 - 99 mg/dL EXTERNAL LAB Blood 05/20/2019 us Abstract Provider CHEMISTRY ORDERABLES Final Res ult Performing Organization Address [facility] Co de Phone Number EXTERNAL LAB from Last 3 Months or Most Recently Relevant to Health Maintenance Insurance * Guarantor: [employer] L [employer]) Account Type Relation to Patient Date of Phone Billing Address Corporate Employer ATTN: VALERIA WHITLEY [address] OPEN ACCESS Care Teams Vehicle Insurance Agent Relationship Specialty Start Date End Date Azeem Gandhi MD [address] [place] [address] PCP - General Family Practice 01/07/24
--- OUTSIDE RECORDS SUMMARY | 2025-01-26 15:55 | XMS_ITS | Clinical Summary ---
Author Organization [facility] [employer] Address [address] [place] [address] Care Team Providers Care Chemical Inspector Name Role Phone Azeem Gandhi MD Primary Care Provider [phone] [facility] [employer]non-owned Affiliates and Associated Physician Practices is amultiple site organization consisting of ambulatory clinics and hospital sitesin [place], [place], [place] and [place]. This disclosure is being madepursuant to the Care Everywhere program and may not contain all information available regarding this patient. Last updated 18.[employer] Allergies No known active allergies Medications * Be aware that medications may not be up to date on this document. Alwaysverify current medications with the patient. Medication Sig Dispensed Refills Start Date End Date Status fluticasone propionate (FLONASE) 50 MCG/ACT nasal spray [place] 2 sprays into each nostril once daily 1 bottles 07/24/2018 Active Additional Information Patient not taking.Reported on 11/23/2020 cyclobenzaprine (FLEXERIL) 5 MG tablet Take 1 (one) tablet by mouth 3 times daily as needed (can cause drowsiness, Do not drive or operate machinery while taking) 9 tablet 11/23/2020 Active Family History Medical History Relation Name Comments Cancer - Bladder Father Relation Name Status Comments Father Social History Tobacco Use Types Packs/Day Years Used Date Smoking Tobacco: Never Smokeless Tobacco: Never Sex and Gender Information Value Date Recorded Sex Assigned at Female 11/23/2020 8:19 AM DRINKING WATER TECHNICIAN Gender Identity Female 11/23/2020 8:19 AM DRINKING WATER TECHNICIAN Sexual Orientation Straight 11/23/2020 8: 19 AM DRINKING WATER TECHNICIAN Last Filed Vital Signs Vital Sign Reading Time Taken Comments Blood Pressure 124/82 11/23/2020 10:52 AM DRINKING WATER TECHNICIAN Pulse 74 11/23/2020 10:52 AM DRINKING WATER TECHNICIAN Temperature 36.7 C (98.1 F) 11/23/2020 10:52 AM DRINKING WATER TECHNICIAN Respiratory Rate 16 11/23/2020 10:52 AM DRINKING WATER TECHNICIAN Oxygen Saturation 98% 11/23/2020 10:52 AM DRINKING WATER TECHNICIAN Inhaled Oxygen Concentration - - Weight 104.3 kg (230 lb) 11/23/2020 10:52 AM DRINKING WATER TECHNICIAN Height 162.6 cm (5' 4 ) 11/23/2020 10:52 AM DRINKING WATER TECHNICIAN Body Mass Index 39.48 11/23/2020 10:52 AM DRINKING WATER TECHNICIAN Plan of Treatment Health Maintenance Due Date Last Done Comments COLOGUARD (AGES 45-75) - COL ON CA SCREENING 1972 COLON MONITORING 1972 COLONOSCOPY - COLON CA SCREENING 1972 CT COLONOGRAPHY - COLON CA SCREENING 1972 Colorectal Cancer Screening 1972 FIT - COLON CA SCREENING 1972 FLEX SIG - COLON CA SCREENING 1972 LIPID TESTING 1972 MAMMOGRAM 1972 PAP SMEAR 1972 HIV SCREENING 1987 HEPATITIS C SCREENING 10/04/1990 DTAP/TDAP/TD VACCINES (1 - Tdap) 1991 HEPATITIS B VACCINE (1 of 3 - 19+ 3-dose series) 1991 SCREENING FOR DIABETES 08/23/2020 PNEUMOCOCCAL VACCINE 50+ (1 of 1 - PCV) 2022 ZOSTER VACCINE (1 of 2) 2022 COVID-19 VACCINE (1 - 2023-2 5 season) 2024 INFLUENZA VACCINE (#1) 2024 9, 07/30/2018 DEPRESSION SCREENING 10/28/2024 HIB VACCINE Aged Out No longer eligi ble based on patient's age to complete this topic HPV VACCINE Aged Out No longer eligi ble based on patient's age to complete this topic MENINGOCOCCAL (Group B) VACCINE SHARED DECISION-MAKING Aged Out No longer eligible based on patient's age to complete this topic MENINGOCOCCAL GROUPS A/C/Y/W VACCINE Aged Out No longer eligible b ased on patient's age to complete this topic PNEUMOCOCCAL VACCINE Aged Out No long er eligible based on patient's age to complete this topic Care Teams Chemical Inspector Relationship Specialty Start Date End Date Azeem Gandhi MD [address] [place] [address] PCP - General Family Medicine 07/24/18
== END 2025-01-26 14:28 | disposition home or self-care (01) ==
PROVIDERS: PCP Family Medicine; Visit Provider Nurse Practitioner
DX: Z12.31 Encounter for screening mammogram for malignant neoplasm of breast (principal)
CPT/HCPCS: 77063; 77067